=== PATIENT | male | born 1970 | race Caucasian/White ===

== ENCOUNTER 2024-01-09 16:39 | Outpatient (CLI) | payer OTHER ==
[2024-01-09 18:05] LABS: BASOPHILS % (AUTO) 0.3 % (0.0-2.0); EOSINOPHILS % (AUTO) 0.1 % (0.0-4.0); HEMATOCRIT 39.2 % (36-54); HEMOGLOBIN 13.8 g/dL (14.0-18.0); MEAN CORPUSCULAR HEMOGLOBIN 33 pg (27-31); MEAN CORPUSCULAR HGB CONC 35 % (32-36); MEAN CORPUSCULAR VOLUME 93 fL (79.0-98.0); MONOCYTES # (AUTO) 1.2 K/uL (0.0-1.0); MONOCYTES % (AUTO) 7.2 % (1.7-9.3); NEUTROPHILS # (AUTO) 14.8 K/uL (1.8-7.7); NEUTROPHILS % (AUTO) 86.4 % (40.0-70.0); PLATELET COUNT (AUTO) 199 K/uL (130-430); RED BLOOD CELL COUNT(AUTO) 4.23 MIL/uL (4.2-6.2); RED CELL DISTRIBUTION WIDTH 13.6 % (9.0-15.0); WHITE BLOOD COUNT (AUTO) 17.1 K/uL (4.8-10.8)
[2024-01-09 18:20] LABS: ALBUMIN 3.4 g/dL (3.4-4.8); CREATININE 0.96 mg/dL (0.55-1.30); POTASSIUM 3.5 mmol/L (3.5-5.1); THYROID STIMULATING HORMONE 0.7 uIu/mL (0.34-4.82); TOTAL BILIRUBIN 0.8 mg/dL (0.0-1.0); TOTAL PROTEIN, SERUM 7.3 g/dL (6.4-8.3)
[2024-01-09 20:13] LABS: HEMOGLOBIN A1C 6.6 % (<5.7)
[2024-01-10] MEDS ORDERED: GLIP10TA11 PO (20:13)
[2024-01-10] MEDS ORDERED: APIX5TAB PO (20:13)
[2024-01-10] MEDS ORDERED: ROSU10TA72 PO (20:13)
[2024-01-10] MEDS ORDERED: TAMS0.4C96 PO (20:13)
[2024-01-10] MEDS ORDERED: LISI10TA29 PO (20:13)
[2024-01-10] MEDS ORDERED: METF-381 PO (20:13)
[2024-01-11 08:06] LABS: % FREE PSA 42.5 % (.); FREE PSA 2.93 ng/mL; PROSTATE SPECIFIC AG TOTAL 6.9 ng/mL (0.0-4.0)
== END 2024-01-09 21:30 | disposition home or self-care (01) ==
LOC: SCT 16:39
PROVIDERS: ATTEND Internal Medicine
DX: K42.9 Umbilical hernia without obstruction or gangrene (principal); R32 Unspecified urinary incontinence; E11.49 Type 2 diabetes mellitus with other diabetic neurological complication; I10 Essential (primary) hypertension; R33.9 Retention of urine, unspecified; I82.402 Acute embolism and thrombosis of unspecified deep veins of left lower extremity; E78.5 Hyperlipidemia, unspecified; M47.816 Spondylosis without myelopathy or radiculopathy, lumbar region
CPT/HCPCS: 36415; 80053; 80061; 83037; 84153; 84443; 85025

== ENCOUNTER 2024-01-10 13:27 | Inpatient (IN) | payer OTHER ==
[~2024-01-10] VITALS: Ht 182.9 cm; Wt 131.1 kg
[2024-01-10 13:31] VITALS: BP_SYST 118; PULSE 105; RESP 17; TEMP 99.5; O2SAT 93
[2024-01-10 14:28] LABS: BILIRUBIN,URINE 2+ (NEGATIVE); BLOOD, URINE 2+ (NEGATIVE); COLOR,URINE YELLOW (YELLOW); GLUCOSE,URINE NEGATIVE (NEGATIVE); KETONES,URINE 1+ (NEGATIVE); LEUKOCYTE ESTERASE ,URINE NEGATIVE (NEGATIVE); NITRITE, URINE NEGATIVE (NEGATIVE); PROTEIN URINE 2+ (NEGATIVE)
[2024-01-10 14:31] LABS: CLARITY/URINE SLIGHTLY HAZY (CLEAR)
[2024-01-10 14:38] LABS: BASOPHILS % (AUTO) 0.1 % (0.0-2.0); HEMATOCRIT 38.5 % (36-54); HEMOGLOBIN 13.2 g/dL (14.0-18.0); LYMPHOCYTES # (AUTO) 0.3 K/uL (1.0-5.5); LYMPHOCYTES % (AUTO) 2.8 % (20.5-51.5); MEAN CORPUSCULAR HEMOGLOBIN 32 pg (27-31); MEAN CORPUSCULAR HGB CONC 34 % (32-36); MEAN CORPUSCULAR VOLUME 93 fL (79.0-98.0); MONOCYTES # (AUTO) 0.4 K/uL (0.0-1.0); MONOCYTES % (AUTO) 3.7 % (1.7-9.3); NEUTROPHILS # (AUTO) 10.9 K/uL (1.8-7.7); NEUTROPHILS % (AUTO) 93.4 % (40.0-70.0); PLATELET COUNT (AUTO) 124 K/uL (130-430); RED BLOOD CELL COUNT(AUTO) 4.16 MIL/uL (4.2-6.2); RED CELL DISTRIBUTION WIDTH 13.3 % (9.0-15.0); WHITE BLOOD COUNT (AUTO) 11.7 K/uL (4.8-10.8)
[2024-01-10 14:53] LABS: BACTERIA,URINE RARE /HPF (None Seen); WBC,URINE 0-3 /HPF (0-3)
[2024-01-10 14:54] LABS: MUCUS,URINE 1+ /LPF (None Seen)
[2024-01-10 14:56] LABS: CREATINE KINASE, TOTAL 754 U/L (39-308)
[2024-01-10 15:22] LABS: CKMB RELATIVE INDEX 0.2 (0.0-2.9); CREATINE KINASE MB 1.4 ng/mL (0-3.6)
[2024-01-10 15:23] LABS: CALCIUM 8.7 mg/dL (8.4-11.0); CREATININE 1.06 mg/dL (0.55-1.30); POTASSIUM 3.4 mmol/L (3.5-5.1)
[2024-01-10] MEDS: PIPERACILLIN/TAZO 3.375 GM in NS 50 ML IV ONE (16:00)
[2024-01-10] MEDS: NACL 0.9% 1,000 ML IV ONE ×2 (16:00→17:06)
[2024-01-10] MEDS ORDERED: PIPERACILLIN/TAZOBACTAM 3.375 GM/VIAL (ZOSYN) IV ONE ×2 (17:37)
[2024-01-10] MEDS: NACL 0.9% 1,000 ML IV SCH (20:00)
[2024-01-10] MEDS ORDERED: GLIP10TA11 PO (20:13)
[2024-01-10] MEDS ORDERED: APIX5TAB PO (20:13)
[2024-01-10] MEDS ORDERED: METF-381 PO (20:13)
[2024-01-10] MEDS ORDERED: TAMS0.4C96 PO (20:13)
[2024-01-10] MEDS ORDERED: LISI10TA29 PO (20:13)
[2024-01-10] MEDS ORDERED: ROSU10TA72 PO (20:13)
[2024-01-10 20:20] LABS: INR 1.3 (0.80-1.20); PROTHROMBIN TIME 13.1 SECS (9.5-12.5)
[2024-01-10 21:00] VITALS: BP_SYST 131; PULSE 105; RESP 16; TEMP 99.5; O2SAT 92
[2024-01-10] MEDS ORDERED: INSULIN REGULAR, HUMAN 100 UNITS/ML, 3 ML VIAL (humuLIN R) SUBCUT SCH (21:00)
[2024-01-10] MEDS: HEPARIN SODIUM,PORCINE 5,000 UNITS/ML VIAL IVP SCH (23:05)
[2024-01-10] MEDS: ONDANSETRON HCL 4 MG/2 ML VIAL IVP PRN (23:21)
[2024-01-11] VITALS (8 sets, daily range): BP systolic 92–138; PULSE 75–102; RESP 18–26; TEMP 96.8–99.2; O2SAT 94–96
[2024-01-11] MEDS: PIPERACILLIN/TAZOBACTAM 3.375 GM/VIAL (ZOSYN) IV ONE (01:10)
[2024-01-11] MEDS: PIPERACILLIN/TAZO 3.375 GM in D5W 50 ML IV SCH (01:37)
[2024-01-11] MEDS: INSULIN REGULAR, HUMAN 100 UNITS/ML, 3 ML VIAL (humuLIN R) SUBCUT PRN (06:21)
[2024-01-11] MEDS: ATORVASTATIN 20 MG TABLET PO SCH (09:45)
[2024-01-11] MEDS: LISINOPRIL 10 MG TABLET (PRINIVIL) PO SCH (09:46)
[2024-01-11] MEDS: ACETAMINOPHEN 325 MG TABLET PO PRN (09:49)
[2024-01-11] MEDS: APIXABAN 2.5 MG TABLET PO ONE (11:54)
[2024-01-11 19:00] LABS: BASOPHILS % (AUTO) 0.1 % (0.0-2.0); EOSINOPHILS # (AUTO) 0.1 K/uL (0.0-0.4); EOSINOPHILS % (AUTO) 0.9 % (0.0-4.0); HEMATOCRIT 35.5 % (36-54); HEMOGLOBIN 12.5 g/dL (14.0-18.0); LYMPHOCYTES # (AUTO) 0.3 K/uL (1.0-5.5); LYMPHOCYTES % (AUTO) 5.2 % (20.5-51.5); MEAN CORPUSCULAR HEMOGLOBIN 32 pg (27-31); MEAN CORPUSCULAR HGB CONC 35 % (32-36); MEAN CORPUSCULAR VOLUME 92 fL (79.0-98.0); MONOCYTES # (AUTO) 0.5 K/uL (0.0-1.0); MONOCYTES % (AUTO) 7.8 % (1.7-9.3); NEUTROPHILS # (AUTO) 5.6 K/uL (1.8-7.7); PLATELET COUNT (AUTO) 102 K/uL (130-430); RED BLOOD CELL COUNT(AUTO) 3.88 MIL/uL (4.2-6.2); RED CELL DISTRIBUTION WIDTH 13.5 % (9.0-15.0); WHITE BLOOD COUNT (AUTO) 6.5 K/uL (4.8-10.8)
[2024-01-11 19:07] LABS: CALCIUM 8.3 mg/dL (8.4-11.0); CREATININE 0.92 mg/dL (0.55-1.30); POTASSIUM 3.6 mmol/L (3.5-5.1)
[2024-01-11] MEDS ORDERED: NON-FORMULARY MEDICATION (Rosuvastatin Calcium 1 TAB) PO SCH (21:00)
[2024-01-11] MEDS: TAMSULOSIN HCL 0.4 MG CAP PO SCH (21:41)
[2024-01-11] MEDS: APIXABAN 2.5 MG TABLET PO SCH (21:43)
[2024-01-12 00:23] VITALS: BP_SYST 108; PULSE 76; RESP 20; TEMP 98.4; O2SAT 95
[2024-01-12] MEDS: HYDROcodone/ACETAMIN 5-325 MG TAB (NORCO/ VICODIN) PO PRN (00:49)
[2024-01-12 08:00] VITALS: BP_SYST 125; PULSE 85; RESP 14; TEMP 98.5; O2SAT 93
[2024-01-12 09:26] LABS: BASOPHILS % (AUTO) 0.1 % (0.0-2.0); EOSINOPHILS # (AUTO) 0.1 K/uL (0.0-0.4); EOSINOPHILS % (AUTO) 1.4 % (0.0-4.0); HEMATOCRIT 35.9 % (36-54); HEMOGLOBIN 12.5 g/dL (14.0-18.0); LYMPHOCYTES # (AUTO) 0.4 K/uL (1.0-5.5); LYMPHOCYTES % (AUTO) 7.4 % (20.5-51.5); MEAN CORPUSCULAR HEMOGLOBIN 32 pg (27-31); MEAN CORPUSCULAR HGB CONC 35 % (32-36); MEAN CORPUSCULAR VOLUME 91 fL (79.0-98.0); MONOCYTES # (AUTO) 0.6 K/uL (0.0-1.0); MONOCYTES % (AUTO) 11.9 % (1.7-9.3); NEUTROPHILS # (AUTO) 4.2 K/uL (1.8-7.7); NEUTROPHILS % (AUTO) 79.2 % (40.0-70.0); PLATELET COUNT (AUTO) 107 K/uL (130-430); RED BLOOD CELL COUNT(AUTO) 3.94 MIL/uL (4.2-6.2); RED CELL DISTRIBUTION WIDTH 13.1 % (9.0-15.0); WHITE BLOOD COUNT (AUTO) 5.3 K/uL (4.8-10.8)
[2024-01-12 09:46] LABS: ALBUMIN 2.4 g/dL (3.4-4.8); CALCIUM 8.4 mg/dL (8.4-11.0); CREATININE 0.87 mg/dL (0.55-1.30); POTASSIUM 3.5 mmol/L (3.5-5.1); TOTAL BILIRUBIN 1.1 mg/dL (0.0-1.0); TOTAL PROTEIN, SERUM 6.4 g/dL (6.4-8.3)
[2024-01-12 12:00] VITALS: BP_SYST 108; PULSE 75; RESP 20; TEMP 97.3; O2SAT 95
[2024-01-12 16:00] VITALS: BP_SYST 112; PULSE 68; RESP 26; TEMP 98.7; O2SAT 95
[2024-01-12 20:00] VITALS: BP_SYST 113; PULSE 72; RESP 20; TEMP 97.8; O2SAT 96
[2024-01-13 00:03] VITALS: BP_SYST 110; PULSE 80; RESP 15; TEMP 98.8; O2SAT 90
[2024-01-13 08:00] VITALS: O2SAT 94
[2024-01-13 08:01] VITALS: BP_SYST 123; PULSE 78; RESP 18; TEMP 96.7; O2SAT 94
[2024-01-13 08:30] VITALS: O2SAT 94
[2024-01-13 12:58] VITALS: BP_SYST 112; PULSE 68; RESP 17; TEMP 97; O2SAT 97
[2024-01-13] MEDS ORDERED: CEPH250C PO (15:26)
[2024-01-13 15:45] VITALS: BP_SYST 112; PULSE 68; RESP 17; TEMP 97; O2SAT 97
[2024-01-14 01:05] LABS: % FREE PSA 10.8 % (.); FREE PSA 1.16 ng/mL; PROSTATE SPECIFIC AG TOTAL 10.7 ng/mL (0.0-4.0)
== END 2024-01-13 14:20 | disposition home or self-care (01) | DRG 690 ==
LOC: SED 13:27 → STU 19:46
PROVIDERS: ADMIT Internal Medicine; ATTEND Internal Medicine
PROC: 4A00X4Z Measurement of Central Nervous Electrical Activity, External Approach (ICD-10-PCS; principal; 2024-01-12)
DX: N39.0 Urinary tract infection, site not specified (principal); E78.00 Pure hypercholesterolemia, unspecified; E11.40 Type 2 diabetes mellitus with diabetic neuropathy, unspecified; R56.9 Unspecified convulsions; E11.65 Type 2 diabetes mellitus with hyperglycemia; E66.9 Obesity, unspecified; N40.1 Benign prostatic hyperplasia with lower urinary tract symptoms; R33.8 Other retention of urine; E11.42 Type 2 diabetes mellitus with diabetic polyneuropathy; I10 Essential (primary) hypertension; Z68.39 Body mass index [BMI] 39.0-39.9, adult; Z79.899 Other long term (current) drug therapy; Z86.718 Personal history of other venous thrombosis and embolism; Z87.891 Personal history of nicotine dependence
CPT/HCPCS: 36415; 70450-TC; 71045; 71250-TC; 80048; 80053; 81000; 81001; 81015; 82550; 82553; 82948; 83605; 84153; 84484; 85025; 85610; 85730; 87040; 87086; 93005; 95816; 96365; 97116-GP; 97163-GP; 97530-GP; 99291; G0378; J1644; J1815; J2405; J2543; J7060; Q9967